=== PATIENT | female | born 1935 | race Caucasian/White ===

== ENCOUNTER 2017-11-07 10:04 | Emergency (ER) | payer MEDICARE, BC ==
[2017-11-07] MEDS ORDERED: Albuterol/Ipratropium 3.0-0.5 MG/3 ML Neb Soln NEB ONE (10:41)
--- NOTE | 2017-11-07 11:15 | CR ---
Chest 2V HISTORY: dyspnea COMPARISON: None FINDINGS: Lungs appear clear and normally aerated. Cardiomediastinal silhouette is within normal limits. There is mild atherosclerotic calcification in the aortic arch. No vascular redistribution or pleural fluid can be seen. Small anterior aspects are noted lower thoracic spine. IMPRESSION: No acute chest abnormality is identified.
--- NOTE | 2017-11-07 11:22 | EDM.PDOC ---
ED HPI GENERAL MEDICAL PROBLEM - General Chief Complaint: Respiratory Problem Stated Complaint: POSSIBLE ASTHMA ATTACK Time Seen by Provider: 11/07/17 10:25 Source of Information: Reports: Patient, Family History Limitations: Reports: No Limitations - History of Present Illness INITIAL COMMENTS - FREE TEXT/NARRATIVE: 82-year-old female with a persistent cough, wheezing, and moderate feeling of shortness of breath over the past 48 hours. No specific complaints of fever, cough is nonproductive. It started yesterday morning, yesterday afternoon she was seen in the clinic and started on doxycycline and prednisone. She was told to come to the emergency room today if not improving she does not feel she has improved. Duration: Day(s): (2 days) Improves with: Reports: Other (Nebulizer helps briefly) Associated Symptoms: Reports: Cough, Shortness of Breath (Social shortness of breath with activity). Denies: Chest Pain, Fever/Chills - Related Data Allergies Allergy/AdvReac Type Severity Reaction Status Date / Time atorvastatin AdvReac Muscle Verified 11/07/17 10:21 Aches Home Meds: Home Meds Albuterol [Ventolin HFA] 90 mcg IH Q4HR PRN 05/14/14 [History] Aspirin [Adult Low Dose Aspirin EC] 81 mg PO DAILY 05/14/14 [History] Calcium Carb & Citrate/Vit D3 [Calcium + D3 ER Tablet] 1 each PO DAILY 05/14/14 [History] Fluticasone/Salmeterol [Advair 250-50 Diskus] 1 puff INH DAILY 05/14/14 [History ] Loratadine/Pseudoephedrine [Claritin-D 24 Hour Tablet] 10 mg PO DAILY 05/14/14 [ History] Hydrochlorothiazide [Hydrochlorothiazide] 1 tab PO DAILY 10/07/14 [History] Doxycycline Monohydrate 100 mg PO BID 11/07/17 [History] predniSONE [predniSONE] 20 mg PO ASDIRECTED 11/07/17 [History] Past Medical History HEENT History: Reports: Cataract Cardiovascular History: Reports: High Cholesterol, Hypertension Respiratory History: Reports: Asthma, Bronchitis, 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, Musculoskeletal History: Reports: Arthritis Oncologic (Cancer) History: Reports: Breast - Infectious Disease History Infectious Disease History: Reports: C-Difficile, Measles, Mumps - Past Surgical History HEENT Surgical History: Reports: Adenoidectomy, Tonsillectomy Female Surgical History: Reports: Hysterectomy Oncologic Surgical History: Reports: Mastectomy Other Oncologic Surgeries/Procedures: partial Social & Family History - Tobacco Use Smoking Status *Q: Former Smoker Used Tobacco, but Quit: Yes Month Tobacco Last Used: 25 years ago Second Hand Smoke Exposure: No - Caffeine Use Caffeine Use: Reports: Coffee - Alcohol Use Days Per Week of Alcohol Use: 1 Number of Drinks Per Day: 2 Total Drinks Per Week: 2 - Recreational Drug Use Recreational Drug Use: No ED ROS GENERAL - Review of Systems Review Of Systems: See Below Constitutional: Reports: Malaise. Denies: Fever HEENT: Reports: Rhinitis, Throat Pain (Scratchy throat) Respiratory: Reports: Shortness of Breath, Cough. Denies: Sputum Cardiovascular: Denies: Chest Pain GI/Abdominal: Denies: Abdominal Pain, Nausea, Vomiting Skin: Reports: No Symptoms Neurological: Denies: Headache Psychiatric: Reports: No Symptoms ED EXAM, GENERAL - Physical Exam Exam: See Below Exam Limited By: No Limitations General Appearance: Alert, No Apparent Distress (Appears uncomfortable because of her persistent cough, not distressed) Nose: Clear Rhinorrhea Head: Atraumatic Respiratory/Chest: No Respiratory Distress, Wheezing (a few expiratory wheezes are heard initially) Cardiovascular: Regular Rate, Rhythm Extremities: No: Pedal Edema Neurological: Alert, Oriented Psychiatric: Normal Affect, Normal Mood Skin Exam: Warm, Dry Course - Vital Signs Last Recorded V/S: Last Vital Signs Temp 97.5 F 11/07/17 10:15 Pulse 102 H 11/07/17 10:15 Resp 20 11/07/17 10:15 BP 142/76 H 11/07/17 10:15 Pulse Ox 95 11/07/17 10:15 - Orders/Labs/Meds Orders: Active Orders 24 hr Category Date Time Status RT Aerosol Therapy [RC] ASDIRECTED Care 11/07/17 10:42 Active Meds: Medications Discontinued Medications Generic Name Dose Route Start Last Admin Trade Name Freq PRN Reason Stop Dose Admin Albuterol/Ipratropium 3 ml 11/07/17 10:41 11/07/17 10:45 Duoneb 3.0-0.5 Mg/3 Ml NEB 11/07/17 10:42 3 ml ONETIME ONE Administration - Re-Assessments/Exams Free Text/Narrative Re-Assessment/Exam: 11/07/17 11:24 Patient was given a duo neb which cleared her wheezing. O2 saturations remained above 93-94% on room air before and after the nebulizer. A two-view chest x-ray was obtained that showed no infiltrates, there was some mild to moderate hyperinflation. Patient was informed to continue her prednisone treatment, the antibiotic, and was given 15 100 mg benzonatate Perles for additional cough suppression. He was explained to her this is likely viral and may need to run its course, if she worsens she'll return for recheck. Departure - Departure Time of Disposition: 11:34 Disposition: Home, Self-Care 01 Condition: Good Clinical Impression: Acute viral bronchitis - Discharge Information Instructions: Acute Bronchitis, [id number] Referrals: PCP,None [Primary Care Provider] - Forms: ED Department Discharge Care Plan Goals: Continue the prednisone and doxycycline as prescribed. Use benzonatate for cough suppression over the next several days, and nebulizers every 3-4 hours if needed. Return to the emergency room at any time if worsening or consider rechecking in 2-3 days if not improving satisfactorily. - My Orders Last 24 Hours: My Active Orders 11/07/17 10:42 RT Aerosol Therapy [RC] ASDIRECTED - Assessment/Plan Last 24 Hours: My Active Orders 11/07/17 10:42 RT Aerosol Therapy [RC] ASDIRECTED
== END 2017-11-07 11:35 | disposition home or self-care (01) ==
LOC: JP.ED 10:04
DX: J20.8 Acute bronchitis due to other specified organisms (principal); I10 Essential (primary) hypertension; E78.00 Pure hypercholesterolemia, unspecified; J45.909 Unspecified asthma, uncomplicated; Z87.891 Personal history of nicotine dependence; Z79.82 Long term (current) use of aspirin; Z79.899 Other long term (current) drug therapy; Z88.8 Allergy status to other drugs, medicaments and biological substances
CPT/HCPCS: 71020; 94640; 99284; J7620; 99283

== ENCOUNTER 2017-11-08 20:24 | Emergency (ER) | payer MEDICARE, BC ==
[2017-11-08] MEDS ORDERED: Albuterol/Ipratropium 3.0-0.5 MG/3 ML Neb Soln NEB ONE (20:58)
[2017-11-08] MEDS ORDERED: Codeine/guaiFENesin 100mg-10 MG/5 ML Syrup 10 ML Cup PO ONE (20:59)
--- NOTE | 2017-11-08 21:01 | EDM.PDOC ---
ED HPI GENERAL MEDICAL PROBLEM - General Chief Complaint: Respiratory Problem Stated Complaint: BRONCHITIS Time Seen by Provider: 11/08/17 21:00 Source of Information: Reports: Patient, Family History Limitations: Reports: No Limitations - History of Present Illness INITIAL COMMENTS - FREE TEXT/NARRATIVE: pt has had a persistent cough since saturday and she is getting progressively worse. She is coughing up some sputum. Onset: Gradual Duration: Day(s):, Getting Worse Location: Reports: Chest Associated Symptoms: Reports: Cough, Fever/Chills, Malaise - Related Data Allergies Allergy/AdvReac Type Severity Reaction Status Date / Time atorvastatin AdvReac Muscle Verified 11/07/17 10:21 Aches Home Meds: Home Meds Albuterol [Ventolin HFA] 90 mcg IH Q4HR PRN 05/14/14 [History] Aspirin [Adult Low Dose Aspirin EC] 81 mg PO DAILY 05/14/14 [History] Calcium Carb & Citrate/Vit D3 [Calcium + D3 ER Tablet] 1 each PO DAILY 05/14/14 [History] Fluticasone/Salmeterol [Advair 250-50 Diskus] 1 puff INH DAILY 05/14/14 [History ] Loratadine/Pseudoephedrine [Claritin-D 24 Hour Tablet] 10 mg PO DAILY 05/14/14 [ History] Hydrochlorothiazide [Hydrochlorothiazide] 1 tab PO DAILY 10/07/14 [History] Doxycycline Monohydrate 100 mg PO BID 11/07/17 [History] predniSONE [predniSONE] 20 mg PO ASDIRECTED 11/07/17 [History] Past Medical History HEENT History: Reports: Cataract Cardiovascular History: Reports: High Cholesterol, Hypertension Respiratory History: Reports: Asthma, Bronchitis, 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, Musculoskeletal History: Reports: Arthritis Oncologic (Cancer) History: Reports: Breast - Infectious Disease History Infectious Disease History: Reports: C-Difficile, Measles, Mumps - Past Surgical History HEENT Surgical History: Reports: Adenoidectomy, Tonsillectomy Female Surgical History: Reports: Hysterectomy Oncologic Surgical History: Reports: Mastectomy Other Oncologic Surgeries/Procedures: partial Social & Family History - Tobacco Use Smoking Status *Q: Never Smoker Used Tobacco, but Quit: Yes Month Tobacco Last Used: 25 years ago Second Hand Smoke Exposure: No - Caffeine Use Caffeine Use: Reports: Coffee - Alcohol Use Days Per Week of Alcohol Use: 1 Number of Drinks Per Day: 2 Total Drinks Per Week: 2 - Recreational Drug Use Recreational Drug Use: No ED ROS GENERAL - Review of Systems Review Of Systems: See Below Constitutional: Reports: Fever, Fatigue, Other ( severe coughing) HEENT: Reports: No Symptoms Respiratory: Reports: Shortness of Breath, Wheezing, Cough Cardiovascular: Reports: No Symptoms Endocrine: Reports: No Symptoms GI/Abdominal: Reports: No Symptoms : Reports: No Symptoms Musculoskeletal: Reports: No Symptoms Skin: Reports: No Symptoms ED EXAM, GENERAL - Physical Exam Exam: See Below Free Text/Narrative:: pt arrived with a cough and wondering if her infection is getting worse. She is on predisone, doxycline. She has jas james. for the cough. Exam Limited By: No Limitations General Appearance: Alert, Anxious Ears: Normal TMs Nose: Normal Inspection Throat/Mouth: Normal Inspection Head: Atraumatic Neck: Normal Inspection Respiratory/Chest: Rhonchi, Wheezing, Other (pt is not real tight. ) Cardiovascular: Regular Rate, Rhythm, Tachycardia GI/Abdominal: Soft, Non-Tender (Female) Exam: Deferred Rectal (Female) Exam: Deferred Back Exam: Normal Inspection Extremities: Normal Inspection Neurological: Alert, Oriented, Normal Cognition Psychiatric: Normal Affect Course - Vital Signs Last Recorded V/S: Last Vital Signs Temp 36.5 C 11/08/17 20:41 Pulse 91 11/08/17 20:41 Resp 16 11/08/17 20:41 BP 165/86 H 11/08/17 20:41 Pulse Ox 98 11/08/17 20:41 - Orders/Labs/Meds Orders: Active Orders 24 hr Category Date Time Status RT Aerosol Therapy [RC] ASDIRECTED Care 11/08/17 20:58 Active Labs: Laboratory Tests 11/08/17 11/08/17 11/08/17 Range/Units 21:11 21:11 21:11 WBC 11.3 H (4.5-11.0) K/uL RBC 5.49 (3.30-5.50) M/uL Hgb 16.5 H (12.0-15.0) g/dL Hct 49.4 H (36.0-48.0) % MCV 90 (80-98) fL MCH 30 (27-31) pg MCHC 33 (32-36) % Plt Count 279 (150-400) K/uL Neut % (Auto) 67 H (36-66) % Lymph % (Auto) 10 L (24-44) % [place] % (Auto) 23 H (2-6) % Eos % (Auto) 0 L (2-4) % Baso % (Auto) 0 (0-1) % Sodium 140 (140-148) mmol/L Potassium 3.3 L (3.6-5.2) mmol/L Chloride 100 (100-108) mmol/L Carbon Dioxide 28 (21-32) mmol/L Anion Gap 15.3 H (5.0-14.0) mmol/L BUN 22 H (7-18) mg/dL Creatinine 0.8 (0.6-1.0) mg/dL Est Cr Clr Drug Dosing 52.50 mL/min Estimated GFR (MDRD) > 60 (>60) Glucose 103 (74-106) mg/dL Calcium 9.0 (8.5-10.1) mg/dL Total Bilirubin 0.6 (0.2-1.0) mg/dL AST 36 (15-37) U/L ALT 32 (12-78) U/L Alkaline Phosphatase 81 (46-116) U/L Total Protein 7.1 (6.4-8.2) g/dL Albumin 3.9 (3.4-5.0) g/dL Globulin 3.2 (2.3-3.5) g/dL Albumin/Globulin Ratio 1.2 (1.2-2.2) Urine Color Yellow Urine Appearance Clear Urine pH 6.0 (4.5-8.0) Ur Specific [place] 1.015 (1.008-1.030) Urine Protein Negative (NEGATIVE) mg/dL Urine Glucose (UA) Normal (NEGATIVE) mg/dL Urine Ketones 15 H (NEGATIVE) mg/dL Urine Occult Blood Moderate (NEGATIVE) Urine Nitrite Negative (NEGATIVE) Urine Bilirubin Negative (NEGATIVE) Urine Urobilinogen Normal (NORMAL) mg/dL Ur Leukocyte Esterase Moderate (NEGATIVE) Urine RBC 0-5 (0-5) Urine WBC 0-5 (0-5) Ur Epithelial Cells Few Amorphous Sediment Not seen Urine Bacteria Not seen Urine Mucus Not seen Meds: Medications Discontinued Medications Generic Name Dose Route Start Last Admin Trade Name Freq PRN Reason Stop Dose Admin Albuterol/Ipratropium 3 ml 11/08/17 20:58 11/08/17 21:09 Duoneb 3.0-0.5 Mg/3 Ml NEB 11/08/17 20:59 3 ml ONETIME ONE Administration Guaifenesin/Codeine Phosphate 10 ml 11/08/17 20:59 11/08/17 21:09 Robitussin Ac PO 11/08/17 21:00 10 ml ONETIME ONE Administration - Re-Assessments/Exams Free Text/Narrative Re-Assessment/Exam: 11/08/17 21:58 pt is positive for influ b. . Her wbc is not real high. She is on predisone. Her chest xray from yesterday was read as no acute findings. She has a severe cough. Departure - Departure Time of Disposition: 22:00 Disposition: Home, Self-Care 01 Condition: Fair Clinical Impression: Influenza B, COPD (chronic obstructive pulmonary disease) - Discharge Information Referrals: PCP,None [Primary Care Provider] - Forms: ED Department Discharge Care Plan Goals: cool mist humidifier, push fluids, albuterol neb q4h. Add extra fluid to the premixed. Will send extra sterile saline home with her. robitussin ac 2 tsp q6h prn for cough. musinex use tid to help loosen mucous. cont predisone. Hold doxycline 100mg bid for 2 days then resume, tamaflu 75 mg bid for 5 days, - My Orders Last 24 Hours: My Active Orders 11/08/17 20:58 RT Aerosol Therapy [RC] ASDIRECTED - Assessment/Plan Last 24 Hours: My Active Orders 11/08/17 20:58 RT Aerosol Therapy [RC] ASDIRECTED
== END 2017-11-08 22:30 | disposition home or self-care (01) ==
LOC: JP.ED 20:24
DX: J10.1 Influenza due to other identified influenza virus with other respiratory manifestations (principal); J44.9 Chronic obstructive pulmonary disease, unspecified; I10 Essential (primary) hypertension; E78.00 Pure hypercholesterolemia, unspecified; Z87.891 Personal history of nicotine dependence; Z79.82 Long term (current) use of aspirin; Z88.8 Allergy status to other drugs, medicaments and biological substances; Z79.899 Other long term (current) drug therapy
CPT/HCPCS: 36415; 80053; 81001; 85025; 87804; 94640; 99284; A9270; J7620; 99283

== ENCOUNTER 2021-05-21 08:05 | Emergency (ER) | payer MEDICARE, BC ==
--- NOTE | 2021-05-21 08:59 | EDM.PDOC ---
ED HPI GENERAL MEDICAL PROBLEM - General Chief Complaint: Lower Extremity Injury/Pain Stated Complaint: L FOOT INFECTION Time Seen by Provider: 05/21/21 08:40 Source of Information: Reports: Patient History Limitations: Reports: No Limitations - History of Present Illness INITIAL COMMENTS - FREE TEXT/NARRATIVE: 86-year-old female who has chronic calluses on the sole of her feet, occasionally they get inflamed and over the past several days she has developed redness and increased soreness of the forefoot on the left side. There is also some mild edema, no fevers or chills. 1 month ago she had a small amount of purulent discharge and responded well to antibiotics, this feels similar. Onset: Gradual Duration: Day(s): (2 to 3 days of inflammation) Location: Reports: Lower Extremity, Left Worsens with: Reports: Other (Weightbearing is painful), Movement Associated Symptoms: Reports: No Other Symptoms Left Foot Pain Score (Numeric/FACES): 3 - Related Data Allergies Allergy/AdvReac Type Severity Reaction Status Date / Time Bleach (Sodium Hypochlorite) Allergy Airway Verified 05/21/21 08:21 Tightness atorvastatin AdvReac Muscle Verified 05/21/21 08:20 Aches Home Meds: Home Meds Calcium Carb, Citrate/Vit D3 [Calcium + D3 ER Tablet] 1 each PO BID 05/14/14 [History] Hydrochlorothiazide 1 tab PO DAILY 10/07/14 [History] [place]-3S/DHA/Epa/Fish Oil [Fish Oil 1,200 mg Softgel] 1 each PO BID 12/13/18 [History] Acetaminophen 650 mg PO BID 05/21/21 [History] Cholecalciferol (Vitamin D3) [Vitamin D] 2,000 unit PO DAILY 05/21/21 [History] FLUoxetine [PROzac] 10 mg PO DAILY 05/21/21 [History] MV-Mn/FA/Coq10/Lycopene/Lutein [Theragran-M Premier 50+ Caplet] 1 each PO DAILY 05/21/21 [History] Melatonin 10 mg PO BEDTIME PRN 05/21/21 [History] Montelukast [Singulair] 10 mg PO BEDTIME 05/21/21 [History] Past Medical History HEENT History: Reports: Cataract Cardiovascular History: Reports: High Cholesterol, Hypertension Respiratory History: Reports: Asthma, Bronchitis, Recurrent Genitourinary History: Reports: Other (See Below) Other Genitourinary History: fallen bladder 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, Musculoskeletal History: Reports: Arthritis Oncologic (Cancer) History: Reports: Breast - Infectious Disease History Infectious Disease History: Reports: C-Difficile, Measles, Mumps - Past Surgical History HEENT Surgical History: Reports: Adenoidectomy, Tonsillectomy, Other (See Below) Other HEENT Surgeries/Procedures: left nares cauterized 10 years ago Female Surgical History: Reports: Hysterectomy Oncologic Surgical History: Reports: Mastectomy Other Oncologic Surgeries/Procedures: partial Social & Family History - Family History Family Medical History: No Pertinent Family History - Tobacco Use Tobacco Use Status *Q: Never Tobacco User - Caffeine Use Caffeine Use: Reports: None - Alcohol Use Days Per Week of Alcohol Use: 7 Number of Drinks Per Day: 1 Total Drinks Per Week: 7 - Recreational Drug Use Recreational Drug Use: No Review of Systems - Review of Systems Review Of Systems: See Below Constitutional: Denies: Fever Respiratory: Reports: No Symptoms Cardiovascular: Reports: No Symptoms Genitourinary: Reports: No Symptoms Musculoskeletal: Reports: Other (Increased foot pain on the left side) Skin: Reports: Erythema Neurological: Reports: No Symptoms, Other (Denies peripheral neuropathy) ED EXAM, GENERAL - Physical Exam Exam: See Below Exam Limited By: No Limitations General Appearance: Alert, No Apparent Distress Head: Atraumatic Respiratory/Chest: No Respiratory Distress Cardiovascular: Regular Rate, Rhythm Extremities: Other (She has just a trace of ankle edema bilaterally, symmetric. On the sole of the foot under the MP joints, she has deep callus formation with irritation, and there is surrounding warm erythema extending over the forefoot) Neurological: Alert, Oriented Psychiatric: Normal Affect, Normal Mood Course - Vital Signs Last Recorded V/S: Last Vital Signs Temp 98.2 F 05/21/21 08:32 Pulse 58 L 05/21/21 08:32 Resp 15 05/21/21 08:32 BP 174/74 H 05/21/21 08:32 Pulse Ox 94 L 05/21/21 08:32 - Re-Assessments/Exams Free Text/Narrative Re-Assessment/Exam: 05/21/21 08:57 Peers this patient has developed foot cellulitis with an entry point through the calluses of the foot. I reviewed her clinic records, 1 month ago she was just "covered with antibiotics" and it does not say what type. She is not allergic to anything, so was placed on 1 week of cephalexin. 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 Departure - Departure Time of Disposition: 09:12 Disposition: Home, Self-Care 01 Clinical Impression: Cellulitis of left foot - Discharge Information Instructions: Cellulitis, Adult Referrals: Pam Hare MD [Primary Care Provider] - Forms: ED Department Discharge Care Plan Goals: Continue your current medications, and add antibiotic 3 times a day as prescribed until gone. Elevating the foot may be helpful, and recheck with podiatry if possible this week. Return if worsening despite treatment such as increased redness, pain, fever, or vomiting the medications. Sepsis Event Note (ED) - Evaluation Sepsis Screening Result: No Definite Risk - Focused Exam Vital Signs: Vital Signs Temp Pulse Resp BP Pulse Ox 05/21/21 08:32 98.2 F 58 L 15 174/74 H 94 L 05/21/21 08:20 98.2 F 58 L 15 174/74 H 94 L
== END 2021-05-21 09:12 | disposition home or self-care (01) ==
LOC: JP.ED 08:05
DX: L03.116 Cellulitis of left lower limb (principal); R60.0 Localized edema
CPT/HCPCS: 99282

== ENCOUNTER 2022-06-19 15:17 | Emergency (ER) | payer MEDICARE, BC ==
[2022-06-19] MEDS ORDERED: Albuterol 8 GM Inhaler INH ONE (16:07)
[2022-06-19 17:02] LABS: ESTIMATED GFR 88 mL/min (>60)
== END 2022-06-19 18:55 | disposition home or self-care (01) ==
LOC: JP.ED 15:17
DX: U07.1 COVID-19 (principal); J45.21 Mild intermittent asthma with (acute) exacerbation; I10 Essential (primary) hypertension; E78.00 Pure hypercholesterolemia, unspecified; Z79.899 Other long term (current) drug therapy; Z88.8 Allergy status to other drugs, medicaments and biological substances
CPT/HCPCS: 36415; 71045; 80053; 84145; 85025; 85379; 86140; 94640; 99285; A9270; U0002

== ENCOUNTER 2022-06-20 09:13 | Inpatient (IN) | payer MEDICARE, BC ==
[2022-06-20] MEDS ORDERED: Racepinephrine 2.25% 0.5 ML Neb Soln NEB ONE (09:49)
[2022-06-20] MEDS ORDERED: Sodium Chloride 0.9% Inhalation Soln 3 ML Neb INH PRN ×2 (09:49→12:29)
[2022-06-20] MEDS ORDERED: Dexamethasone 4 MG/ML SDV IVPUSH ONE (10:06)
[2022-06-20] MEDS ORDERED: Codeine/guaiFENesin 10-100 MG/5 ML Syrup 5 ML Cup PO ONE (11:45)
[2022-06-20] MEDS: Albuterol 8 GM Inhaler INH PRN (12:07)
[2022-06-20] MEDS ORDERED: Racepinephrine 2.25% 0.5 ML Neb Soln NEB PRN (12:29)
[2022-06-20] MEDS ORDERED: Ondansetron 4 MG Tab.DIS PO PRN (12:29)
[2022-06-20] MEDS ORDERED: Ondansetron 4 MG/2 ML SDV IV PRN (12:29)
[2022-06-20] MEDS ORDERED: Magnesium Hydroxide 400 MG/5 ML Susp 30 ML Cup PO PRN (12:29)
[2022-06-20] MEDS ORDERED: REMDESIVIR 200 MG in Sodium Chloride 0.9% 250 ML IV ONE (13:30)
[2022-06-20] MEDS: Benzonatate 100 MG Cap PO PRN ×2 (14:14→20:53)
[2022-06-20] MEDS: Enoxaparin 40 MG/0.4 ML Syringe SUBCUT SCH (14:15)
[2022-06-20] MEDS: Calcium Carbonate/Vitamin D3 1500 MG-400 Units Tab PO SCH ×2 (20:50→20:53)
[2022-06-20] MEDS: Montelukast 10 MG Tab PO SCH (20:51)
[2022-06-20] MEDS: Melatonin 3 MG Tab PO SCH ×2 (20:51→20:53)
[2022-06-20] MEDS: Codeine/guaiFENesin 10-100 MG/5 ML Syrup 5 ML Cup PO PRN (20:53)
[2022-06-21] MEDS: Albuterol 8 GM Inhaler INH PRN (01:17)
[2022-06-21] MEDS: Codeine/guaiFENesin 10-100 MG/5 ML Syrup 5 ML Cup PO PRN ×2 (04:00→20:59)
[2022-06-21 05:51] LABS: ESTIMATED GFR 88 mL/min (>60)
[2022-06-21] MEDS ORDERED: Potassium Chloride 20 MEQ Tab.ER PO ONE ×2 (09:00→12:00)
[2022-06-21] MEDS: Calcium Carbonate/Vitamin D3 1500 MG-400 Units Tab PO SCH ×2 (09:23→21:00)
[2022-06-21] MEDS: Cholecalciferol (Vitamin D3) 25 MCG Tab PO SCH (09:23)
[2022-06-21] MEDS: Enoxaparin 40 MG/0.4 ML Syringe SUBCUT SCH (09:24)
[2022-06-21] MEDS: Dexamethasone 4 MG/ML SDV IVPUSH SCH (09:24)
[2022-06-21] MEDS: REMDESIVIR 100 MG in Sodium Chloride 0.9% 100 ML IV SCH (11:45)
[2022-06-21] MEDS: Acetaminophen 325 MG Tab PO PRN (20:59)
[2022-06-21] MEDS: Montelukast 10 MG Tab PO SCH (21:00)
[2022-06-21] MEDS: Melatonin 3 MG Tab PO SCH ×2 (21:00→21:02)
[2022-06-22] MEDS: Acetaminophen 325 MG Tab PO PRN ×3 (01:14→17:12)
[2022-06-22 05:31] LABS: ESTIMATED GFR 88 mL/min (>60)
[2022-06-22] MEDS: Dexamethasone 4 MG/ML SDV IVPUSH SCH (08:09)
[2022-06-22] MEDS: Enoxaparin 40 MG/0.4 ML Syringe SUBCUT SCH (08:10)
[2022-06-22] MEDS: Calcium Carbonate/Vitamin D3 1500 MG-400 Units Tab PO SCH ×3 (08:11→21:23)
[2022-06-22] MEDS: Cholecalciferol (Vitamin D3) 25 MCG Tab PO SCH ×2 (08:11→08:18)
[2022-06-22] MEDS: Codeine/guaiFENesin 10-100 MG/5 ML Syrup 5 ML Cup PO PRN ×2 (08:12→17:12)
[2022-06-22] MEDS ORDERED: Acetaminophen 325 MG Tab ONE (08:27)
[2022-06-22] MEDS: REMDESIVIR 100 MG in Sodium Chloride 0.9% 100 ML IV SCH (11:25)
[2022-06-22] MEDS: Albuterol 8 GM Inhaler INH PRN (19:22)
[2022-06-22] MEDS: Melatonin 3 MG Tab PO SCH (21:23)
[2022-06-22] MEDS: Montelukast 10 MG Tab PO SCH (21:24)
[2022-06-23 04:56] LABS: ESTIMATED GFR 88 mL/min (>60)
[2022-06-23] MEDS: Calcium Carbonate/Vitamin D3 1500 MG-400 Units Tab PO SCH ×2 (08:03→20:04)
[2022-06-23] MEDS: Cholecalciferol (Vitamin D3) 25 MCG Tab PO SCH (08:03)
[2022-06-23] MEDS: Dexamethasone 4 MG/ML SDV IVPUSH SCH (08:05)
[2022-06-23] MEDS: Enoxaparin 40 MG/0.4 ML Syringe SUBCUT SCH (08:06)
[2022-06-23] MEDS: Codeine/guaiFENesin 10-100 MG/5 ML Syrup 5 ML Cup PO PRN ×2 (08:08→14:10)
[2022-06-23] MEDS: Benzonatate 100 MG Cap PO PRN (09:58)
[2022-06-23] MEDS: Montelukast 10 MG Tab PO SCH (20:04)
[2022-06-23] MEDS: Melatonin 3 MG Tab PO SCH (20:04)
[2022-06-24] MEDS ORDERED: predniSONE 20 MG Tab PO SCH (08:00)
[2022-06-24] MEDS: Calcium Carbonate/Vitamin D3 1500 MG-400 Units Tab PO SCH (08:04)
[2022-06-24] MEDS: Cholecalciferol (Vitamin D3) 25 MCG Tab PO SCH (08:05)
[2022-06-24] MEDS: Enoxaparin 40 MG/0.4 ML Syringe SUBCUT SCH (08:05)
[2022-06-24] MEDS: Codeine/guaiFENesin 10-100 MG/5 ML Syrup 5 ML Cup PO PRN (08:13)
== END 2022-06-24 11:55 | disposition home or self-care (01) | DRG 177 ==
LOC: JP.ED 09:13 → JP.ICU 12:05
PROVIDERS: ADMIT Internal Medicine; ATTEND Internal Medicine
PROC: 8E0ZXY6 Isolation (ICD-10-PCS; principal; 2022-06-20)
PROC: XW033E5 Introduction of Remdesivir Anti-infective into Peripheral Vein, Percutaneous Approach, New Technology Group 5 (ICD-10-PCS; 2022-06-20)
PROC: 3E0333Z Introduction of Anti-inflammatory into Peripheral Vein, Percutaneous Approach (ICD-10-PCS; 2022-06-20)
DX: U07.1 COVID-19 (principal); J38.5 Laryngeal spasm; J12.82 Pneumonia due to coronavirus disease 2019; J96.01 Acute respiratory failure with hypoxia; J45.909 Unspecified asthma, uncomplicated; J45.901 Unspecified asthma with (acute) exacerbation; Z85.3 Personal history of malignant neoplasm of breast; E78.00 Pure hypercholesterolemia, unspecified; I10 Essential (primary) hypertension; M19.90 Unspecified osteoarthritis, unspecified site; Z90.710 Acquired absence of both cervix and uterus; Z88.8 Allergy status to other drugs, medicaments and biological substances; Z79.899 Other long term (current) drug therapy
CPT/HCPCS: 94640 ×2; 96365; 96372; 96375; 99285; A9270; J1100; 36415; 80053; 85027; 85379; 86140; 97162-GP; 97530-GP; J1650; J3490; J7050; J7512

== ENCOUNTER 2022-07-20 08:31 | Emergency (ER) | payer MEDICARE, BC ==
[2022-07-20 09:56] LABS: TROPONIN I HIGH SENSITIVITY 5.5 pg/mL (<=60.3)
== END 2022-07-20 11:24 | disposition home or self-care (01) ==
LOC: JP.ED 08:31
DX: I49.1 Atrial premature depolarization (principal); E78.00 Pure hypercholesterolemia, unspecified; I10 Essential (primary) hypertension; Z88.8 Allergy status to other drugs, medicaments and biological substances
CPT/HCPCS: 36415; 71046; 80048; 84484; 85025; 93005; 99284

== ENCOUNTER 2023-05-02 08:47 | Day surgery (SDC) | payer MEDICARE, BC ==
[2023-05-02] MEDS ORDERED: Sodium Chloride 0.9% 10 ML Syringe FLUSH PRN (10:00)
== END 2023-05-02 10:29 | disposition home or self-care (01) ==
LOC: JP.SDS 08:47
PROVIDERS: ATTEND Ophthalmology
DX: H26.9 Unspecified cataract (principal); J45.909 Unspecified asthma, uncomplicated; I10 Essential (primary) hypertension; F41.9 Anxiety disorder, unspecified; Z88.8 Allergy status to other drugs, medicaments and biological substances; Z91.048 Other nonmedicinal substance allergy status
CPT/HCPCS: 66984; J3490

== ENCOUNTER 2023-05-23 08:38 | Day surgery (SDC) | payer MEDICARE, BC ==
[2023-05-23] MEDS ORDERED: Sodium Chloride 0.9% 10 ML Syringe FLUSH PRN (09:00)
== END 2023-05-23 10:05 | disposition home or self-care (01) ==
LOC: JP.SDS 08:38
PROVIDERS: ATTEND Ophthalmology
DX: H26.9 Unspecified cataract (principal); I10 Essential (primary) hypertension; J45.909 Unspecified asthma, uncomplicated; Z91.048 Other nonmedicinal substance allergy status; Z88.8 Allergy status to other drugs, medicaments and biological substances
CPT/HCPCS: 66984; J3490

== ENCOUNTER 2023-06-09 07:16 | Emergency (ER) | payer MEDICARE, BC ==
[2023-06-09] MEDS ORDERED: PARoxetine 20 MG Tab PO ONE (08:27)
== END 2023-06-09 09:17 | disposition home or self-care (01) ==
LOC: JP.ED 07:16
DX: F32.2 Major depressive disorder, single episode, severe without psychotic features (principal); I10 Essential (primary) hypertension; Z88.8 Allergy status to other drugs, medicaments and biological substances; Z79.899 Other long term (current) drug therapy; Z91.048 Other nonmedicinal substance allergy status; Z90.710 Acquired absence of both cervix and uterus; Z86.16 Personal history of COVID-19; Z87.891 Personal history of nicotine dependence
CPT/HCPCS: 99283; A9270

== ENCOUNTER 2023-07-20 19:22 | Emergency (ER) | payer MEDICARE, BC | END 2023-07-20 20:45 | disposition left against medical advice (07) | LOC: JP.ED 19:22 | DX: Z53.21 Procedure and treatment not carried out due to patient leaving prior to being seen by health care provider (principal) ==

== ENCOUNTER 2024-07-07 16:05 | Emergency (ER) | payer MEDICARE, BC ==
[2024-07-07] MEDS: Ketorolac 30 MG/ML SDV IM ONE (18:18)
== END 2024-07-07 19:03 | disposition home or self-care (01) ==
LOC: JP.ED 16:05
DX: S30.0XXA Contusion of lower back and pelvis, initial encounter (principal); I10 Essential (primary) hypertension; Z86.16 Personal history of COVID-19; Z90.710 Acquired absence of both cervix and uterus; Z87.891 Personal history of nicotine dependence; Z79.1 Long term (current) use of non-steroidal anti-inflammatories (NSAID); Z79.899 Other long term (current) drug therapy; Z88.8 Allergy status to other drugs, medicaments and biological substances; Z91.048 Other nonmedicinal substance allergy status; W01.0XXA Fall on same level from slipping, tripping and stumbling without subsequent striking against object, initial encounter; Y92.002 Bathroom of unspecified non-institutional (private) residence as the place of occurrence of the external cause
CPT/HCPCS: 72100; 72220; 96372; 99283; J1885

== ENCOUNTER 2024-07-08 14:57 | Inpatient (IN) | payer MEDICARE, BC ==
[2024-07-08 15:28] LABS: BASOPHILS PERCENT AUTO 0.1 % (0.1-1.3); EOSINOPHILS PERCENT AUTO 0.2 % (0.0-5.4); HEMATOCRIT 41.3 % (34.3-46.0); HEMOGLOBIN 14.1 g/dL (11.2-15.5); IMMATURE GRAN ABSOLUTE AUTO 0.04 K/uL (0.00-0.23); IMMATURE GRAN PERCENT AUTO 0.4 % (0.0-0.7); LYMPHOCYTES ABSOLUTE AUTO 0.65 K/uL (0.8-3.3); LYMPHOCYTES PERCENT AUTO 6.5 % (11.4-47.7); MEAN CORPUSCULAR HEMOGLOBIN 30.3 pg (31.6-35.5); MEAN CORPUSCULAR HGB CONC 34.1 g/dL (31.6-35.5); MEAN CORPUSCULAR VOLUME 88.6 fL (81.4-99.0); MONOCYTES ABSOLUTE AUTO 1.21 K/uL (0.20-0.90); MONOCYTES PERCENT AUTO 12.1 % (3.3-12.6); NEUTROPHILS ABSOLUTE AUTO 8.09 K/uL (1.0-7.6); NEUTROPHILS PERCENT AUTO 80.7 % (40.0-78.1); PLATELET COUNT,PLT 165 K/uL (130-375); RED BLOOD CELL COUNT 4.66 M/uL (3.77-5.24)
[2024-07-08 15:29] LABS: BASOPHILS ABSOLUTE AUTO 0.01 K/uL (0.00-0.10); EOSINOPHILS ABSOLUTE AUTO 0.02 K/uL (0.00-0.40)
[2024-07-08 15:51] LABS: CALCIUM 9.2 mg/dL (8.5-10.1); CREATININE 0.7 mg/dL (0.6-1.0); EST CRCL DRUG DOSING (CG) 50.95 mL/min; TROPONIN I HIGH SENSITIVITY 16.4 pg/mL (<=60.3)
[2024-07-08] MEDS: Sodium Chloride 0.9% 1,000 ML IV ONE (16:36)
[2024-07-08] MEDS: Sodium Chloride 0.9% 10 ML Syringe FLUSH ONE (20:18)
[2024-07-08] MEDS: Iopamidol 755 Mg/ML 100 ML Bottle IV ONE (20:18)
[2024-07-08] MEDS: Sodium Chloride 0.9% 100 ML IV ONE (20:18)
[2024-07-08] MEDS ORDERED: Ondansetron 4 MG Tab.DIS PO PRN (20:44)
[2024-07-08] MEDS ORDERED: Naloxone 0.4 MG/ML SDV IVPUSH PRN (20:44)
[2024-07-08] MEDS ORDERED: Morphine 2 MG/ML SYRINGE IVPUSH PRN (20:44)
[2024-07-08] MEDS ORDERED: Ondansetron 4 MG/2 ML SDV IV PRN (20:44)
[2024-07-08] MEDS: methylPREDNISolone Sodium Succinate 125 MG/2 ML SDV IV ONE (21:29)
[2024-07-08] MEDS: cefTRIAXone 1 GM in Sodium Chloride 0.9% 50 ML IV SCH (21:30)
[2024-07-08] MEDS: Sodium Chloride 0.9% 1,000 ML IV SCH (21:33)
[2024-07-08] MEDS: Montelukast 10 MG Tab PO SCH (21:53)
[2024-07-08] MEDS: Oxybutynin 5 MG Tab PO SCH (21:53)
[2024-07-08] MEDS: Gabapentin 400 MG Cap PO SCH (21:53)
[2024-07-08] MEDS: traZODone 50 MG Tab PO SCH (21:53)
[2024-07-08] MEDS: Doxycycline 100 MG in Sodium Chloride 0.9% 100 ML IV SCH (21:54)
[2024-07-08] MEDS: Albuterol/Ipratropium 3.0-0.5 MG/3 ML Neb Soln NEB SCH (21:54)
[2024-07-08 22:07] LABS: BILIRUBIN,URINE NEGATIVE (NEGATIVE); COLOR,URINE YELLOW (YELLOW); GLUCOSE,URINE NEGATIVE (NEGATIVE); KETONES,URINE 40 mg/dL (NEGATIVE); LEUKOCYTE ESTERASE,URINE TRACE (NEGATIVE); NITRITE,URINE NEGATIVE (NEGATIVE); OCCULT BLOOD,URINE SMALL (NEGATIVE); PROTEIN,URINE NEGATIVE (NEGATIVE); UROBILINOGEN,URINE 0.2 EU/dL (0.2-1.0)
[2024-07-08] MEDS: oxyCODONE 5 MG Tab PO PRN (22:07)
[2024-07-08] MEDS: Acetaminophen 325 MG Tab PO PRN (22:08)
[2024-07-08 22:09] LABS: APPEARANCE,URINE SLIGHTLY CLOUDY (CLEAR)
[2024-07-08 22:11] LABS: AMORPHOUS SEDIMENT,URINE NOT SEEN; EPITHELIAL CELLS,URINE RARE; MUCUS,URINE NOT SEEN
[2024-07-08 22:12] LABS: BACTERIA,URINE FEW; WBC,URINE 0-5 (0-5)
[2024-07-09] MEDS: methylPREDNISolone Sodium Succinate 125 MG/2 ML SDV IV SCH (02:02)
[2024-07-09] MEDS ORDERED: methylPREDNISolone Sodium Succinate 40 MG/1 ML SDV IV SCH (02:10)
[2024-07-09 03:19] LABS: BASOPHILS ABSOLUTE AUTO 0.01 K/uL (0.00-0.10); BASOPHILS PERCENT AUTO 0.1 % (0.1-1.3); HEMATOCRIT 41.6 % (34.3-46.0); HEMOGLOBIN 14.2 g/dL (11.2-15.5); IMMATURE GRAN ABSOLUTE AUTO 0.03 K/uL (0.00-0.23); IMMATURE GRAN PERCENT AUTO 0.4 % (0.0-0.7); LYMPHOCYTES PERCENT AUTO 5.8 % (11.4-47.7); MEAN CORPUSCULAR HEMOGLOBIN 30.3 pg (31.6-35.5); MEAN CORPUSCULAR HGB CONC 34.1 g/dL (31.6-35.5); MEAN CORPUSCULAR VOLUME 88.7 fL (81.4-99.0); MONOCYTES ABSOLUTE AUTO 0.17 K/uL (0.20-0.90); MONOCYTES PERCENT AUTO 2.4 % (3.3-12.6); NEUTROPHILS ABSOLUTE AUTO 6.34 K/uL (1.0-7.6); NEUTROPHILS PERCENT AUTO 91.3 % (40.0-78.1); PLATELET COUNT,PLT 149 K/uL (130-375); RED BLOOD CELL COUNT 4.69 M/uL (3.77-5.24)
[2024-07-09 03:33] LABS: CALCIUM 8.4 mg/dL (8.5-10.1); CREATININE 0.5 mg/dL (0.6-1.0); EST CRCL DRUG DOSING (CG) 74.21 mL/min; POTASSIUM,K 3.3 mmol/L (3.6-5.2)
[2024-07-09 03:35] LABS: ANION GAP 14.3 mmol/L (5.0-14.0)
[2024-07-09] MEDS: Pantoprazole 40 MG Vial IVPUSH SCH (07:39)
[2024-07-09] MEDS: Enoxaparin 40 MG/0.4 ML Syringe SUBCUT SCH (08:20)
[2024-07-09] MEDS: Hydrochlorothiazide 25 MG Tab PO SCH (08:20)
[2024-07-09] MEDS: PARoxetine 20 MG Tab PO SCH (08:21)
[2024-07-09] MEDS: Lidocaine 4% 1 each Patch TOP SCH (08:21)
[2024-07-09] MEDS: Potassium Chloride 20 MEQ Tab.ER PO ONE ×2 (08:25→16:06)
[2024-07-09] MEDS: Albuterol/Ipratropium 3.0-0.5 MG/3 ML Neb Soln NEB SCH (10:14)
[2024-07-10 05:14] LABS: BASOPHILS PERCENT AUTO 0.1 % (0.1-1.3); HEMATOCRIT 39.3 % (34.3-46.0); HEMOGLOBIN 13.3 g/dL (11.2-15.5); IMMATURE GRAN ABSOLUTE AUTO 0.03 K/uL (0.00-0.23); IMMATURE GRAN PERCENT AUTO 0.3 % (0.0-0.7); LYMPHOCYTES ABSOLUTE AUTO 0.72 K/uL (0.8-3.3); LYMPHOCYTES PERCENT AUTO 6.3 % (11.4-47.7); MEAN CORPUSCULAR HEMOGLOBIN 30.3 pg (31.6-35.5); MEAN CORPUSCULAR HGB CONC 33.8 g/dL (31.6-35.5); MEAN CORPUSCULAR VOLUME 89.5 fL (81.4-99.0); MONOCYTES ABSOLUTE AUTO 1.13 K/uL (0.20-0.90); MONOCYTES PERCENT AUTO 9.9 % (3.3-12.6); NEUTROPHILS ABSOLUTE AUTO 9.56 K/uL (1.0-7.6); NEUTROPHILS PERCENT AUTO 83.4 % (40.0-78.1); PLATELET COUNT,PLT 158 K/uL (130-375); RED BLOOD CELL COUNT 4.39 M/uL (3.77-5.24); WHITE BLOOD CELL COUNT,WBC 11.5 K/uL (3.2-11.0)
[2024-07-10 05:17] LABS: BASOPHILS ABSOLUTE AUTO 0.01 K/uL (0.00-0.10)
[2024-07-10 05:31] LABS: CALCIUM 9.1 mg/dL (8.5-10.1); CREATININE 0.5 mg/dL (0.6-1.0); EST CRCL DRUG DOSING (CG) 74.21 mL/min; POTASSIUM,K 4.4 mmol/L (3.6-5.2)
[2024-07-10 05:33] LABS: ANION GAP 10.4 mmol/L (5.0-14.0)
[2024-07-10] MEDS: predniSONE 20 MG Tab PO SCH (08:59)
[2024-07-10] MEDS: Docusate Sodium 100 MG Cap PO PRN (14:15)
[2024-07-10] MEDS: Bisacodyl 5 MG Tab PO PRN (14:15)
[2024-07-10] MEDS: Polyethylene Glycol 3350 Powder 17 GM Packet PO ONE (17:05)
[2024-07-11] MEDS: Polyethylene Glycol 3350 Powder 17 GM Packet PO ONE ×2 (11:11→16:19)
[2024-07-11] MEDS: Polyethylene Glycol 3350 Powder 17 GM Packet ONE (16:20)
[2024-07-12] MEDS ORDERED: Sodium Phosphate,Monobasic/Sodium Phosphate,Dibasic Enema 133 ML Bottle RECTAL PRN (09:47)
[2024-07-12] MEDS: Polyethylene Glycol 3350 Powder 17 GM Packet PO ONE (10:33)
[2024-07-12] MEDS: Bisacodyl 10 MG Supp RECTAL ONE (10:33)
== END 2024-07-13 13:00 | disposition home or self-care (01) | DRG 552 ==
LOC: JP.ED 14:57 → JP.MS 19:56
PROVIDERS: ADMIT Nurse Practitioner; ATTEND Hospitalist
DX: S22.081A Stable burst fracture of T11-T12 vertebra, initial encounter for closed fracture (principal); J44.1 Chronic obstructive pulmonary disease with (acute) exacerbation; I10 Essential (primary) hypertension; Z86.16 Personal history of COVID-19; F32.9 Major depressive disorder, single episode, unspecified; Z79.899 Other long term (current) drug therapy; E78.5 Hyperlipidemia, unspecified; Z91.048 Other nonmedicinal substance allergy status; X58.XXXA Exposure to other specified factors, initial encounter; M19.90 Unspecified osteoarthritis, unspecified site; K59.00 Constipation, unspecified; M81.0 Age-related osteoporosis without current pathological fracture; E87.6 Hypokalemia; F41.9 Anxiety disorder, unspecified; R09.02 Hypoxemia; Z88.8 Allergy status to other drugs, medicaments and biological substances; Z90.710 Acquired absence of both cervix and uterus; Z98.49 Cataract extraction status, unspecified eye; Z98.890 Other specified postprocedural states; Z90.89 Acquired absence of other organs; W01.0XXA Fall on same level from slipping, tripping and stumbling without subsequent striking against object, initial encounter
CPT/HCPCS: 36415; 71275 ×2; 80048; 84484; 85025; 85379; 93005; 96360; 99285; J7030; U0002; 81001; 84145; 93010; 94640; 97110-GP; 97116-GP; 97161-GP; 97165-GO; 97535-GO; 99222; 99232; 99238; A9270-GY; J0696; J1650; J2470; J2919; J3490; J7512; J7620; Q9967